=== PATIENT | male | born 1965 | race Caucasian/White ===

== ENCOUNTER 2022-11-14 19:02 | Inpatient (IN) | payer MEDICAID ==
[~2022-11-14] VITALS: Ht 182.9 cm; Wt 141.4 kg
[2022-11-14 20:43] LABS: BASOPHILS % (AUTO) 0.3 % (0.0-2.0); EOSINOPHILS % (AUTO) 1.9 % (1.0-6.0); HEMOGLOBIN 16.2 g/dL (13.5-17.5); LYMPHOCYTES # (AUTO) 2.3 K/uL (1.0-4.8); LYMPHOCYTES % (AUTO) 22.3 % (22.0-44.0); MEAN CORPUSCULAR HEMOGLOBIN 31.4 pg (26.0-34.0); MEAN CORPUSCULAR HGB CONC 33.7 G/dL (31.0-37.0); MEAN CORPUSCULAR VOLUME 93 fL (80-100); MONOCYTES # (AUTO) 1.2 K/uL (0.1-1.0); MONOCYTES % (AUTO) 11.5 % (2.0-9.0); NEUTROPHILS # (AUTO) 6.6 K/uL (1.8-7.7); PLATELET COUNT (AUTO) 230 K/uL (150-450); RED BLOOD CELL COUNT(AUTO) 5.15 MIL/uL (4.50-5.90)
[2022-11-14 20:44] LABS: CALCIUM, TOTAL 10.1 mg/dL (8.8-10.5); CREATININE 1.37 mg/dL (0.60-1.30); POTASSIUM 4.7 mmol/L (3.5-5.1)
[2022-11-14 20:50] LABS: ALBUMIN 3.6 g/dL (3.4-5.0); BILIRUBIN,TOTAL 0.2 mg/dL (0.1-1.0); TOTAL PROTEIN, SERUM 8.5 g/dL (6.4-8.2)
[2022-11-15] MEDS ORDERED: 0.9% SODIUM CHLORIDE 10 ML SYRINGE IVP PRN (01:30)
[2022-11-15] MEDS ORDERED: ACETAMINOPHEN 325 MG TABLET PO PRN ×2 (01:30→10:45)
[2022-11-15] MEDS ORDERED: ONDANSETRON HCL 4 MG/2 ML VIAL IVP PRN ×2 (01:30→10:45)
[2022-11-15] MEDS ORDERED: ASPIRIN 325 MG TABLET PO ONE (01:30)
[2022-11-15] MEDS ORDERED: MORPHINE SULFATE 2 MG/ML SYRINGE IVP PRN (10:45)
[2022-11-15] MEDS ORDERED: LORazepam 2 MG/ML VIAL IVP ONE (10:45)
[2022-11-15] MEDS ORDERED: BISACODYL 10 MG RECTAL RECTAL SUPPOSITORY PR PRN (10:45)
[2022-11-15] MEDS ORDERED: ASPIRIN 81 MG CHEWABLE TABLET PO ONE (10:45)
[2022-11-15] MEDS ORDERED: MAGNESIUM HYDROXIDE SUSPENSION 30 ML UDCUP PO PRN (10:45)
[2022-11-15] MEDS ORDERED: ZOLPIDEM TARTRATE 5 MG TABLET PO PRN (10:45)
[2022-11-15 12:01] VITALS: BP 149/94; PULSE 93; RESP 19; TEMP 97.7
[2022-11-15 15:27] VITALS: BP 124/75; PULSE 89; RESP 19; TEMP 98.3
[2022-11-15] MEDS: HEPARIN SODIUM,PORCINE 5,000 UNITS/ML VIAL SQ SCH (15:28)
[2022-11-15 19:46] VITALS: BP 137/86; PULSE 81; RESP 19; TEMP 98.1
[2022-11-15] MEDS: DOCUSATE SODIUM 100 MG CAPSULE PO SCH (20:04)
[2022-11-15] MEDS: ATORVASTATIN CALCIUM 20 MG TABLET PO SCH (20:04)
[2022-11-16] MEDS: HEPARIN SODIUM,PORCINE 5,000 UNITS/ML VIAL SQ SCH ×4 (00:12→23:24)
[2022-11-16 00:29] VITALS: BP 145/91; PULSE 86; RESP 19; TEMP 98.8
[2022-11-16 05:08] VITALS: BP 149/94; PULSE 89; RESP 19; TEMP 97.6
[2022-11-16 07:20] LABS: CHOL/HDL RATIO 7.1 (4.2-7.3); THYROID STIMULATING HORMONE 1.96 uIU/mL (0.36-3.74)
[2022-11-16 07:29] VITALS: BP 145/90; PULSE 78; RESP 18; TEMP 98.4
[2022-11-16] MEDS: HYDROCODONE/ACETAMINOPHEN 5-325 MG TABLET PO PRN ×2 (08:54→18:11)
[2022-11-16] MEDS: DOCUSATE SODIUM 100 MG CAPSULE PO SCH ×2 (08:54→19:47)
[2022-11-16] MEDS: ASPIRIN 81 MG CHEWABLE TABLET PO SCH (08:54)
[2022-11-16] MEDS: PANTOPRAZOLE SODIUM 40 MG DR TABLET PO SCH (08:55)
[2022-11-16] MEDS: CLOPIDOGREL BISULFATE 75 MG TABLET PO SCH (08:55)
[2022-11-16] MEDS ORDERED: AmLODIPine BESYLATE 5 MG TABLET PO SCH (09:00)
[2022-11-16 11:17] VITALS: BP 151/86; PULSE 85; RESP 19; TEMP 98.1
[2022-11-16 15:13] VITALS: BP 121/79; PULSE 78; RESP 18; TEMP 98
[2022-11-16] MEDS: ATORVASTATIN CALCIUM 20 MG TABLET PO SCH (19:47)
[2022-11-16 20:01] VITALS: BP 145/79; PULSE 85; RESP 19; TEMP 98.6
[2022-11-17 00:05] VITALS: BP_SYST 114; BP_SYST 154; BP_DIAS 74; BP_DIAS 87; PULSE 76; PULSE 82; RESP 16; RESP 17; TEMP 97.9; TEMP 98.1
[2022-11-17 04:06] VITALS: BP 149/90; PULSE 81; RESP 17; TEMP 98.6
[2022-11-17 07:29] VITALS: BP 150/97; PULSE 79; RESP 18; TEMP 98.1
[2022-11-17] MEDS: HYDROCODONE/ACETAMINOPHEN 5-325 MG TABLET PO PRN ×3 (08:22→17:04)
[2022-11-17] MEDS: HEPARIN SODIUM,PORCINE 5,000 UNITS/ML VIAL SQ SCH ×2 (08:22→15:10)
[2022-11-17] MEDS: ASPIRIN 81 MG CHEWABLE TABLET PO SCH (08:22)
[2022-11-17] MEDS: PANTOPRAZOLE SODIUM 40 MG DR TABLET PO SCH (08:22)
[2022-11-17] MEDS: DOCUSATE SODIUM 100 MG CAPSULE PO SCH (08:22)
[2022-11-17] MEDS: CLOPIDOGREL BISULFATE 75 MG TABLET PO SCH (08:23)
[2022-11-17] MEDS ORDERED: AmLODIPine BESYLATE 10 MG TABLET PO SCH (09:00)
[2022-11-17] MEDS ORDERED: AMLO-258 PO (11:12)
[2022-11-17] MEDS ORDERED: ATOR40TA28 PO (11:13)
[2022-11-17] MEDS ORDERED: ASPI-1444 PO (11:13)
[2022-11-17] MEDS ORDERED: CLOP75TA60 PO (11:14)
[2022-11-17 11:35] VITALS: BP 149/91; PULSE 74; RESP 19; TEMP 98.1
[2022-11-17] MEDS ORDERED: MECL-160 PO (13:10)
[2022-11-17] MEDS ORDERED: MECLIZINE HCL 25 MG TABLET PO ONE (13:15)
[2022-11-17 14:54] VITALS: BP 185/90; RESP 20
[2022-11-17] MEDS ORDERED: CloNIDine HCL 0.1 MG TABLET PO PRN (15:00)
[2022-11-17 16:17] VITALS: BP 149/92; PULSE 78; RESP 18; TEMP 97.9
== END 2022-11-17 18:00 | disposition home or self-care (01) | DRG 45 ==
LOC: EMS 19:03 → AHU 11-15 01:27 → 5S 11-15 10:24
PROVIDERS: ADMIT Internal Medicine; ATTEND Internal Medicine
DX: I63.89 Other cerebral infarction (principal); E44.0 Moderate protein-calorie malnutrition; E66.01 Morbid (severe) obesity due to excess calories; I12.9 Hypertensive chronic kidney disease with stage 1 through stage 4 chronic kidney disease, or unspecified chronic kidney disease; N18.9 Chronic kidney disease, unspecified; Z68.41 Body mass index [BMI] 40.0-44.9, adult
CPT/HCPCS: 70450; 70551; 70552; 80053; 80061; 83690; 84443; 84484; 85025; 92521; 93005; 93306; 93880; 97163; 99291; J1644; J2060